=== PATIENT | male | born 1955 | race Caucasian/White ===

== ENCOUNTER 2019-07-06 09:10 | Emergency (ER) | payer MEDICARE, OTHER ==
[2019-07-06 10:21] LABS: ADD MAN DIFF? NO
[2019-07-06 10:25] LABS: ABNORMAL IP MESSAGE 1; BASOPHILS % 0.2 % (0.0-2.0); EOSINOPHILS % 0.1 % (0.0-7.0); HEMATOCRIT 35.4 % (42.0-52.0); HEMOGLOBIN 11.9 g/dl (14.0-18.0); LYMPHOCYTES # 0.5 10^3/ul (0.8-2.9); LYMPHOCYTES % 5.3 % (15.0-51.0); MEAN CORPUSCULAR HEMOGLOBIN 28.7 pg (29.0-33.0); MEAN CORPUSCULAR HGB CONC 33.6 g/dl (32.0-37.0); MEAN CORPUSCULAR VOLUME 85.5 fl (82.0-101.0); MEAN PLATELET VOLUME 9.2 fl (7.4-10.4); MONOCYTE # 0.5 10^3/ul (0.3-0.9); MONOCYTES % 5.4 % (0.0-11.0); NEUTROPHIL # 8.9 10^3/ul (1.6-7.5); NEUTROPHILS % 88.6 % (39.0-77.0); PLATELET COUNT 282 10^3/UL (140-415); POSITIVE DIFF @See below; RED BLOOD COUNT 4.14 10^6/ul (4.70-6.10); RED CELL DISTRIBUTION WIDTH 14.8 % (11.5-14.5)
[2019-07-06 10:25] LABS: WHITE BLOOD COUNT 10.1 10^3/ul (4.8-10.8)
[2019-07-06 10:51] LABS: ALANINE AMINOTRANSFERASE 105 IU/L (13-69); ALBUMIN 4.1 g/dl (3.3-4.9); ALBUMIN/GLOBULIN RATIO 0.93; ALKALINE PHOSPHATASE 223 IU/L (42-121); ANION GAP 12 (5-13); ASPARTATE AMINO TRANSFERASE 161 IU/L (15-46); BILIRUBIN,INDIRECT 0.4 mg/dl (0-1.1); BILIRUBIN,TOTAL 0.4 mg/dl (0.2-1.3); BLOOD UREA NITROGEN 20 mg/dl (7-20); CALCIUM 9.7 mg/dl (8.4-10.2); CARBON DIOXIDE 25 mmol/L (21-31); CHLORIDE 92 mmol/L (97-110); CREATININE 1.53 mg/dl (0.61-1.24); Estimated GFR 46 mL/min (>60); GLUCOSE 197 mg/dl (70-220); POTASSIUM 3.3 mmol/L (3.5-5.1); SODIUM 129 mmol/L (135-144); TOTAL PROTEIN 8.5 g/dl (6.1-8.1)
[2019-07-06] MEDS ORDERED: LIDOCAINE 2% JELLY 30 ML TOP (11:30)
[2019-07-06] MEDS: POTASSIUM CHLORIDE 20 MEQ POWDER FOR ORAL SOLN PO (11:46)
[2019-07-06] MEDS: LIDOCAINE 2% JELLY 5 ML TOP (11:59)
== END 2019-07-06 12:42 | disposition home or self-care (01) ==
LOC: E/R 09:10
DX: K64.9 Unspecified hemorrhoids (principal); I10 Essential (primary) hypertension; I25.2 Old myocardial infarction; Z85.05 Personal history of malignant neoplasm of liver; Z79.82 Long term (current) use of aspirin
CPT/HCPCS: 74018; 80053; 85025; 99284-25